=== PATIENT | male | born 1980 | race Caucasian/White ===

== ENCOUNTER 2016-06-14 21:59 | Emergency (ER) | payer SELFPAY ==
[~2016-06-14] VITALS: Ht 175.3 cm; Wt 95.3 kg
--- NOTE | 2016-06-14 22:01 | NUR ---
PT TO ER BB [facility], PER EMS PT WAS FOUND SLEEPING IN CAR WITH A BOTTLE OF ALCOHOL. PER EMS PT ADMITTED TO USING HEROIN. PT SOMNELENT UPON ARRIVAL. BREATHS EQUAL AND UNLABORED. PT AROUSABLE TO PAINFUL STIMULI. PT TO ER BED, CHANGED INTO GOWN AND CONNECTED TO MONITOR. PT VITAL SIGNS STABLE. WILL CONT TO MONITOR PT.
--- NOTE | 2016-06-15 02:43 | NUR ---
PT SLEEPING IN [place]. NO SIGNS OF DISTRESS NOTED. PT VITAL SIGNS STABLE. WILL CONT TO MONITOR PT.
--- NOTE | 2016-06-15 04:44 | NUR ---
PT EASILY AROUSABLE. PT AWAKE AND ALERT. PT VITAL SIGNS STABLE. PT REFUSES TO PROVIDE URINE SAMPLE. WILL CONT TO MONITOR PT.
--- NOTE | 2016-06-15 05:33 | NUR ---
PT OK TO BE DISCHARGED PER DR REYNOSO. Patient discharged to home in stable condition. Written and verbal after care instructions given. Patient verbalizes understanding of instruction.Patient is awake and alert to self, day, and place. Pt states that he has a place to stay upon discharge. Pt able to navigate community safely. PT ambulatory with a steady gait.
[2016-06-15 05:34] VITALS: BP 125/72
== END 2016-06-15 05:35 | disposition home or self-care (01) ==
LOC: ER 22:00
DX: F10.129 Alcohol abuse with intoxication, unspecified (principal); R79.89 Other specified abnormal findings of blood chemistry; R51 Headache
CPT/HCPCS: 70450-TC; 82962-TC; A4606; Z7610

== ENCOUNTER 2016-07-21 02:20 | Emergency (ER) | payer MEDICAID, OTHER ==
[~2016-07-21] VITALS: Ht 175.3 cm; Wt 86.2 kg
[2016-07-21] MEDS ORDERED: OLANZAPINE 10 MG VIAL IM ONE ×2 (03:17→03:30)
[2016-07-21] MEDS ORDERED: WATER FOR INJECTION,STERILE 10 ML ONE (03:17)
[2016-07-21 03:29] LABS: BASOPHILS % (AUTO) 0.2 % (0.0-2.0); EOSINOPHILS # (AUTO) 0.2 /CMM (0.0-0.7); EOSINOPHILS % (AUTO) 1.6 % (0.0-6.0); HEMATOCRIT 46 % (39-51); HEMOGLOBIN 15.5 g/dL (13.5-17.5); MEAN CORPUSCULAR HEMOGLOBIN 30 PG (26.0-33.0); MEAN CORPUSCULAR HGB CONC 33 g/dl (31.0-36.0); MEAN CORPUSCULAR VOLUME 90 fL (80-96); MONOCYTES # (AUTO) 0.9 /CMM (0.1-1.30); MONOCYTES % (AUTO) 8.5 % (2.0-12.0); NEUTROPHILS # (AUTO) 7.5 /CMM (1.8-8.9); NEUTROPHILS % (AUTO) 70.7 % (43.0-81.0); PLATELET COUNT (AUTO) 240 /CMM (150-450); RDW COEFFICIENT OF VARIATION 12.7 (11.5-15.0); RED BLOOD CELL COUNT(AUTO) 5.15 MIL/uL (4.5-6.0); WHITE BLOOD COUNT (AUTO) 10.6 K/uL (4.3-11.0)
[2016-07-21 03:39] LABS: CALCIUM, SERUM 8.9 mg/dL (8.5-10.1); CARBON DIOXIDE 30 mmol/L (21-32); CHLORIDE 105 mmol/L (98-107); CREATININE 1.2 mg/dL (0.6-1.3); GFR 69 mL/min (>60); GLUCOSE 95 mg/dL (74-106); POTASSIUM 3.8 mmol/L (3.5-5.1); SODIUM SERUM 140 mmol/L (136-145); UREA NITROGEN, BLOOD 20 mg/dL (7-18)
[2016-07-21 03:45] LABS: ALANINE AMINOTRANSFERASE 20 U/L (12-78); ALBUMIN 3.9 g/dL (3.4-5.0); ALKALINE PHOSPHATASE 85 U/L (46-116); ASPARTATE AMINOTRANSFERASE 25 U/L (15-37); BILIRUBIN,DIRECT 0.1 mg/dL (0.0-0.2); BILIRUBIN,TOTAL 0.4 mg/dL (0.2-1.0); SALICYLATE 3.7 mg/dL (2.8-20.0); TOTAL PROTEIN, SERUM 7.1 g/dL (6.4-8.2)
[2016-07-21 03:51] LABS: ACETAMINOPHEN 0 ug/ml (10-30)
[2016-07-21 03:52] LABS: ALCOHOL, BLOOD < 3 mg/dL (0-0)
--- NOTE | 2016-07-21 07:10 | NUR ---
RECEIVED REPORT FROM LIZZY MONTES FOR [facility]. PT AWAKE ORIENTED . NECK COLLAR IN PLACE. PT GOES BACK TO SLEEP. WILL CONTINUE TO MONITOR.
--- NOTE | 2016-07-21 07:53 | NUR ---
URINE SAMPLE COLLECTED SENT TO LAB
[2016-07-21 08:36] LABS: CANNABINOID, URINE NEGATIVE (NEGATIVE); PHENCYCLIDINE SCREEN,URINE NEGATIVE (NEGATIVE)
--- NOTE | 2016-07-21 10:00 | NUR ---
CALLED [facility] FOR PSYCH EVAL
--- NOTE | 2016-07-21 11:13 | NUR ---
PET team at bedside
--- NOTE | 2016-07-21 15:03 | NUR ---
PET TEAM AT BEDSIDE
[2016-07-21 16:30] VITALS: BP 115/67
--- NOTE | 2016-07-21 16:30 | NUR ---
IV removed. Catheter intact and site benign. Pressure and 4x4 applied to site. No bleeding noted.
--- NOTE | 2016-07-21 16:30 | NUR ---
Patient discharged to home in stable condition. Written and verbal after care instructions given. Patient verbalizes understanding of instruction.
== END 2016-07-21 16:31 | disposition home or self-care (01) ==
LOC: ER 02:22
DX: T14.91 Suicide attempt (principal); R09.89 Other specified symptoms and signs involving the circulatory and respiratory systems
CPT/HCPCS: 36415; 51702; 70490; 80048; 80076; 80305; 80329; 85025; 93005; 96372; 99285; A4606; G0480 ×2; J3490; Z7610; G6039-TC